=== PATIENT | male | born 1955 ===

== ENCOUNTER 2025-10-06 10:21 | Outpatient (AMB) | payer MEDICARE, SELFPAY ==
--- OUTSIDE RECORDS SUMMARY | 2025-10-05 13:30 | XMS_ITS | Encounter Summary ---
Author Organization [facility] Address [address] [place] [address] Care Team Providers Care Spinning Mule Tender Name Role Phone Curt Savage MD Primary Care Provider [phone] Reason for Visit * Reason Comments Hypertension Encounter Details Date Type Department Care Team (Late Contact Info) Description 10/05/2025 1:30 PM EST Office Visit Adult Medicine [address] [phone] Marycarmen Diaz PA [address] [place] [address] Primary hypertension (Primary Dx) Social History Tobacco Use Types Packs/Day Years Used Date Smoking Tobacco: Never Smokeless Tobacco: Never Tobacco Cessation:Counseling Given: Not Answered Alcohol Use Standard Drinks/Week Comments Yes 0 (1 standard drink = 0.6 oz pur e alcohol) Sex and Gender Information Value Date Recorded Sex Assigned at Not on file Legal Sex Male 3:21 AM EST Gender Identity Not on file Sexual Orientation Not on file documented as of this encounter Last Filed Vital Signs Vital Sign Reading Time Taken Comments Blood Pressure 134/86 10/05/2025 1:46 PM EST Pulse 76 10/05/2025 1:26 PM EST Temperature 36.3 C (97.4 F) 10/05/2025 1:26 PM EST Respiratory Rate - - Oxygen Saturation 90% 10/05/2025 1:26 PM EST Inhaled Oxygen Concentration - - Weight 80.3 kg (177 lb 1.6 oz) 10/05/2025 1:26 P M EST Height 180.3 cm (5' 10.98 ) 10/05/2025 1:[address] Body Mass Index 24.71 10/05/2025 1:26 PM EST documented in this encounter Progress Notes * CARLITA Anne - 10/05/2025 1:30 PM EST CHIEF COMPLAINT: Hypertension IDENTIFIER: Yovany Rodríguez is a 70 y.o. old male. HPI: Patient is a 70-year-old male who presents to the office today for blood pressure follow-up. He waslast seen by PCP 09/01/2025 during which blood pressure was at goal. He did report lightheadedness/dizziness which contributed to a fall. Irbesartan 75 mg was discontinued. Patient was advised to continue spironolactone 12.5 mg daily and carvedilol 25 mg twice daily. Blood pressure today is initially 134/88 with 3-minute average at 142/92 and repeat at the end of visit 134/86. The patient endorsescompliance with antihypertensives, denies adverse effects. His home blood pressure reading log ranges between 103-139/68-91. ROS: GENERAL: No malaise, significant weight loss or fever RESPIRATORY: No cough, wheezing or shortness of breath CARDIOVASCULAR: No chest pain, leg swelling or palpitations NEURO: No persistent headache, syncope, seizures, weakness or numbness PAST MEDICAL HISTORY: Patient Active Problem List Diagnosis Date Noted Nonischemic cardiomyopathy ([facility] V24, [facility] V28) 07/19/2025 PAD (peripheral artery disease) ([facility] V24) 02/22/2025 Alzheimer's disease ([facility] V24, [facility] V28) 03/25/2024 Cerebral microvascular disease 03/25/2024 Ascending aorta dilatation ([facility] V24) 10/04/2022 Ventricular tachycardia ([facility] V24, [facility] V28) 04/24/2022 Anxiety and depression 05/30/2021 Cerebellar hemorrhage ([facility] V24, [facility] V28) 03/25/2011 CKD (chronic kidney disease) stage 3, GFR 30-59 ml/min ([facility] V24, [facility] V28) 03/25/2011 Hypertension 03/25/2011 Maxillary sinus mass 03/25/2011 Surgical History[1] SOCIAL HISTORY: Social History Tobacco Use Smoking status: Never Smokeless tobacco: Never Substance Use Topics Alcohol use: Yes FAMILY HISTORY: Family History[2] Family Status Relation Name Status Mother Alive Sciatica, DJD of hip Father Alive CKD, HTN, Bladder CA Brother Alive Testicular CA No partnership data on file MEDICATIONS DISCONTINUED/REORDERED: There are no discontinued medications. ACTIVE MEDICATIONS: Medications Taking[3] ALLERGIES: Allergies[4] PHYSICAL EXAM: Visit Vitals BP 134/86 Pulse 76 Temp 36.3 ??C (97.4 ??F) (Temporal) Ht 1.803 m (70.98 ) Wt 80.3 kg (177 lb 1.6 oz) SpO2 90% BMI 24.71 kg/m?? Smoking Status Never BSA 2 m?? APPEARANCE: Alert and in no acute distress HEART: RRR with normal S1 and S2, no murmurs, no gallops LUNG: clear to auscultation, no wheezing, rales, or rhonchi. Able to talk in full complete sentences NEURO: Awake, alert and oriented x 3. LABS: Lab Results Component Value Date GLUCOSE 87 09/01/2025 CALCIUM 8.6 09/01/2025 NA 139 09/01/2025 K 5.0 09/01/2025 CO2 26 09/01/2025 CL 108 09/01/2025 BUN 30 (H) 09/01/2025 CREATININE 1.61 (H) 09/01/2025 IMPRESSION: 1. Primary hypertension PLAN: Blood pressure today is stable. At this time will continue current regimen of spironolactone 12.5 mg daily and carvedilol 25 mg BID. Patient to contact office for persistently elevated readings greater than 140/90. Follow up in 5 months for routine care. All questions and concerns were addressed. Yovany Rodríguez verbalizes understanding and agrees with thistreatment plan. Patient was reminded to call or return to the office if any new or existing problems arise. No orders of the defined types were placed in this encounter. None CARLITA Anne on 10/05/2025 at 3:53 PM EST Today's documentation was made using voice recognition software.This note may contain grammatical errors secondary to this software. [1] Past Surgical History: Procedure Laterality Date ABLATION Done on 03/21/2022 at [facility] indications:Ventricular Tachycardia and Ventricular Fibrillation CARDIAC CATHETERIZATION DONE ON 03/18/2022 AT [facility] INDICATIONS:Ventricular tachycardia OTHER SURGICAL HISTORY PROCEDURE: ---- OTHER ----; COMMENT: skin CA removed from neck [2] No family history on file. [3] Outpatient Medications Marked as Taking for the 10/05/25 encounter (Office Visit) with CARLITA Anne Medication Sig Dispense Refill aspirin 81 mg EC tablet Take 1 tablet (81 mg total) by mouth 1 (one) time each day. carvediloL (COREG) 25 mg tablet Take 1 tablet (25 mg total) by mouth 2 (two) times a day with meals. 180 each 3 FLUoxetine (PROzac) 20 mg capsule Take 1 capsule (20 mg total) by mouth 1 (one) time each day in the morning. fluticasone propionate (FLONASE) 50 mcg/actuation nasal spray Administer 2 sprays into each nostril1 (one) time each day. Shake gently. Before first use, prime pump. After use, clean tip and replacecap. 16 g 0 folic acid (FOLVITE) 1 mg tablet TAKE 1 TABLET BY MOUTH 1 TIME EACH DAY. 90 tablet 1 memantine (NAMENDA) 10 mg tablet Take 1 tablet (10 mg total) by mouth 2 (two) times a day. for 90 days pyridoxine (B-6) 100 mg tablet Take 1 tablet (100 mg total) by mouth 1 (one) time each day. rosuvastatin (CRESTOR) 20 mg tablet Take 0.5 tablets (10 mg total) by mouth 1 (one) time each day. 90 tablet 3 spironolactone (ALDACTONE) 25 mg tablet Take 0.5 tablets (12.5 mg total) by mouth 1 (one) time eachday. 45 tablet 3 [4] Allergies Allergen Reactions Shellfish Derived documented in this encounter Plan of Treatment Upcoming Encounters Date Type Department Care Team (Late st Contact Info) Description 12/14/2025 3:00 PM EST Office Visit Nephrology [facility] V[facility]as [address] [place] [address] [place] [phone] Don Brito MD [address] [place] [address] 03/09/2026 11:00 AM EDT Office Visit Adult Medicine [facility] [address] [place] [address] Curt Savage MD [address] [place] [address] 06/14/2026 1:30 PM EDT Ancillary Procedure [facility] [address] [facility] [address] [place] [phone] documented as of this encounter Visit Diagnoses Diagnosis Primary hypertension- Primary Unspecified essential hypertension Encounter for adjustment or management of cardiac device documented in this encounter Care Teams Spinning Mule Tender Relationship Specialty Start Date End Date Curt Savage MD [address] [place] [address] PCP - General Internal Medicine 07/19/25 documented as of this encounter
--- NOTE | 2025-10-06 10:46 | A.OFFVIS_ITS ---
Intake Visit Reasons: 6m dementia HPI Comments Details: 70 years old man (with no or children ) with history of brain bleed around 2010, cardiac ICD placement, hypertension, tension type headaches (taking care of his mother) and multifactorial dementia. He is presenting with headaches, impaired memory, and medication review. He has been experiencing daily headaches for some time now, which he correlates to stress, especially in conjunction with a lump felt in the occipital region. Despite the continuous headaches, no specific medication has been started apart from a daily baby aspirin. Notably, the patient reports ongoing short-term memory impairment without a clear onset date, impacting his daily activities. He describes frequent nocturia disrupting his sleep, likely connected to underlying benign prostatic hyperplasia. Adjustments in antihypertensive therapy were made previously due to hypotension, with recent measurements noted at a reasonable level. Anxiety management with Fluoxetine was initiated by the primary care provider, but financial constraints limit additional pharmacological interventions. The patient shares concerns surrounding stress, initially dia due to delayed benefits but resolving, now heightened by approaching holidays. While these concerns contribute to his memory and headache issues, he has not addressed this medically other than existing anxiety medication. Review of Systems Narrative - Neurological: Reports impaired short-term memory, daily headaches, and a lump in the occipital region. - Genitourinary: Reports nocturia affecting sleep. - Psychological: Reports experiencing stress and anxiety. - Sleep: Reports disrupted sleep patterns. Physical Exam Neuro Other: Mental Status: Alert and oriented to person, place, and time. Normal attention. Normal spontaneous speech, fluency, and comprehension. Cranial Nerves: CN II: Visual calderon full to confrontation, visual acuity intact. CN III, IV, : Pupils equal, round, reactive to light and accommodation. Extraocular movements are normal. CN V: Facial sensation is normal. CN VII: Facial movements symmetrical. CN VIII: Hearing intact to bedside conversation is normal. CN IX, X: Palate elevates symmetrically. CN XI: Shoulder shrug and head turn symmetrical. CN XII: Tongue midline without atrophy or fasciculations. Extrapyramidal: Full facial expressions and blinking. No rigidity. Movements are appropriate with no tremor or abnormality. Speech: Normal; no dysarthria or tremor. Assessment & Plan Assessment & Plan (1) Multifactorial dementia: Comment: CT brain WO at [facility] in March 2025: Mod cerebellar atrophy, mild MVD CT brain WO at [place] in Jun 2023: atrophy and MVD (reported) MRI brain WO at [place] in 2010: Extensive WM disease (reported) Code(s): F03.90 - Unspecified dementia, unspecified severity, without behavioral disturbance, psychotic disturbance, mood disturbance, and anxiety Category: Medical (2) Vascular dementia: Code(s): F01.50 - Vascular dementia, unspecified severity, without behavioral disturbance, psychotic disturbance, mood disturbance, and anxiety Category: Medical Qualifiers: Dementia severity: mild Dementia behavioral or psychological symptom: with mood disturbance Qualified Code(s): F01.A3 - Vascular dementia, mild, with mood disturbance (3) Alzheimer disease: Code(s): G30.9 - Alzheimer's disease, unspecified; F02.80 - Dementia in other diseases classified elsewhere, unspecified severity, without behavioral disturbance, psychotic disturbance, mood disturbance, and anxiety Category: Medical (4) Tension type headache: Code(s): G44.209 - Tension-type headache, unspecified, not intractable Category: Medical Qualifiers: Headache chronicity pattern: episodic headache Intractability: not intractable Qualified Code(s): G44.219 - Episodic tension-type headache, not intractable Plan Impression: a: Multifactorial mild to mod dementia b: Tension type headaches Rec: a: Memantine 10mg bid b: Donepezil 10mg daily c: Fluoxetine 20mg daily Medications: New memantine 10 mg PO BID 180 tabs 1RF donepezil 10 mg PO BEDTIME 90 tabs 1RF Coding Level of Care Code Est Pt Level 3 (80366) Global (30736) Diagnoses Multifactorial dementia F03.90 Mild vascular dementia with mood disturbance F01.A3 Dementia severity: mild Dementia behavioral or psychological symptom: with mood disturbance Alzheimer disease G30.9; F02.80 Episodic tension-type headache, not intractable G44.219 Headache chronicity pattern: episodic headache Intractability: not intractable
--- OUTSIDE RECORDS SUMMARY | 2025-10-06 12:37 | XMS_ITS | Encounter Summary ---
Author Organization [facility], Address [address] [place] [address] Phone Care Team Providers Care Vehicle Safety Inspector Name Role Phone Margarita Burns MD Primary Care Provider [phone] Reason for Visit * Reason Comments Med Refill Encounter Details Date Type Department Care Team (Late st Contact Info) Description 03/08/2020 Refill [facility] [address] [place] [address] Hugo Phipps MD [address] [place] [address] Social History Tobacco Use Types Packs/Day Years Used Date Smoking Tobacco: Never Alcohol Use Standard Drinks/Week Comments Yes 0 (1 standard drink = 0.6 oz pure alcohol) Alcoholic Drinks/day: Occasional social drink Sex and Gender Information Value Date Recorded Sex Assigned at Not on file Legal Sex Male 4:30 PM EST Gender Identity Not on file Sexual Orientation Not on file documented as of this encounter Plan of Treatment Not on file documented as of this encounter Visit Diagnoses Not on filedocumented in this encounter Care Teams Vehicle Safety Inspector Relationship Specialty Start Date End Date Margarita Burns MD [address] [facility] [address] [place], [place] PCP - General 09/28/19 documented as of this encounter
--- OUTSIDE RECORDS SUMMARY | 2025-10-06 12:37 | XMS_ITS | Encounter Summary ---
Author Organization [facility] Address [address] [place] [address] Care Team Providers Care Stationary Engineer Apprentice Name Role Phone Curt Savage MD Primary Care Provider [phone] Encounter Details Date Type Department Care Team (Late Contact Info) Description 09/13/2025 Results Follow-Up Adult Medicine [address] [phone] Curt Savage MD [address] [place] [address] Social History Tobacco Use Types Packs/Day Years Used Date Smoking Tobacco: Never Smokeless Tobacco: Never Alcohol Use Standard Drinks/Week Comments Yes 0 (1 standard drink = 0.6 oz pur e alcohol) Sex and Gender Information Value Date Recorded Sex Assigned at Not on file Legal Sex Male 3:21 AM EST Gender Identity Not on file Sexual Orientation Not on file documented as of this encounter Plan of Treatment Upcoming Encounters Date Type Department Care Team (Late Contact Info) Description 12/14/2025 3:00 PM EST Office Visit Nephrology [address] [phone] Don Brito MD [address] [facility] [address] [place] [address] 03/09/2026 11:00 AM EDT Office Visit Adult Medicine [address] [phone] Curt Savage MD [address] [place] [address] 06/14/2026 1:30 PM EDT Ancillary Procedure [facility] [address] [facility] [address] [place] [address] documented as of this encounter Visit Diagnoses Not on filedocumented in this encounter Care Teams Stationary Engineer Apprentice Relationship Specialty Start Date End Date Curt Savage MD [address] [place] [address] PCP - General Internal Medicine 07/19/25 documented as of this encounter
--- OUTSIDE RECORDS SUMMARY | 2025-10-06 12:37 | XMS_ITS | Clinical Summary ---
Author Organization [place] [address] [address] Formerly [facility] Building Address [address] [place] [address] Phone Care Team Providers Care Personal Financial Counselor Name Role Phone Curt Savage MD Primary Care Provider [phone] Allergies Active Allergy Reactions Criticality Noted Date Comments Shellfish Derived 04/26/2022 Medications aspirin 81 mg EC tablet Take 1 tablet (81 mg total) by mouth 1 (one) time each day. 3 Active FLUoxetine (PROzac) 20 mg capsule Take 1 capsule (20 mg total) by mouth 1 (one) time each day in the morning. 4 Active omeprazole (PriLOSEC) [address] capsule TAKE 1 CAPSULE BY MOUTH EVERY DAY 90 capsule 1 5 Active Additional Information Patient not taking.Reason: Other (dc'd), Reported on 09/01/2025 pyridoxine (B-6) 100 mg tablet Take 1 tablet (100 mg total) by mouth 1 (one) time each day. Active memantine (NAMENDA) 10 mg tablet Take 1 tablet (10 mg total) by mouth 2 (two) times a day. for 90 days 5 Active fluticasone propionate (FLONASE) 50 mcg/actuation nasal spray Administer 2 sprays into each nostril 1 (one) time each day. Shake gently. Before first use, prime pump. After use, clean tip and replace cap. 16 g 5 04/07/20 26 Active rosuvastatin (CRESTOR) 20 mg tablet Take 0.5 tablets (10 mg total) by mouth 1 (one) time each day. 90 tablet 3 5 Active carvediloL (COREG) 25 mg tablet Take 1 tablet (25 mg total) by mouth 2 (two) times a day with meals. 180 each 3 5 Active spironolactone (ALDACTONE) 25 mg tablet Take 0.5 tablets (12.5 mg total) by mouth 1 (one) time each day. 45 tablet 3 5 Active folic acid (FOLVITE) 1 mg tablet TAKE 1 TABLET BY MOUTH 1 TIME EACH DAY. 90 tablet 1 5 Active Active Problems Problem Noted Date Diagnosed Date Nonischemic cardiomyopathy ([facility] V24, [facility] V28) 07/19/2025 Overview (07/19/2025): Nonischemic cardiomyopathy. Kardia catheterization showed diffuse noncritical disease with left circumflex with 35% mid RCA at 50%. LVEF 41% by MRI. No clear infiltrative disease and echocardiogram showed normalization of LV function and with medications. He is on lipid-lowering therapy with an outstanding LDL and I will have him cut the Crestor in half given his weak legs and muscle aches. His blood pressure is running on the low side he often gets systolics around 90 so we will have him stop Avapro but continue spironolactone and carvedilol. Assessment & Plan (07/19/2025 11:12 AM EDT): Stop Avapro due to hypotension. Continue carvedilol and spironolactone. Monitor weight. Continue healthy lifestyle. PAD (peripheral artery disease) ([facility] V24) Alzheimer's disease ([facility] V24, [facility] V28) 0 03/25/2024 Overview (09/02/2024): Jaden Cerebral microvascular disease 03/25/2024 Overview (09/02/2024): Jaden Ascending aorta dilatation ([facility] V24) 022 Overview (09/02/2024): Seen on CT chest 10/04/22, Stable dilatation of the aortic root measuring 4.4 cm. Stable dilatation of the ascending thoracic aorta measuring 3.9 cm. Other aortic measurements are stable and include proximal arch 3.4 cm, distal arch 3.1 cm, and mid descending 2.7 cm. Assessment & Plan (07/19/2025 11:10 AM EDT): Dilated aorta. Continue to follow with annual echocardiograms. I will wait until his next 6-month visit and we will recheck at that time. Ventricular tachycardia ([facility] V24, [facility] V2 8) 04/24/2022 Assessment & Plan (07/19/2025 11:11 AM EDT): No ventricular tachycardia on ICD. Normally functioning ICD. Continue remote monitoring. Continue beta-arcelia. Anxiety and depression 05/30/2021 Cerebellar hemorrhage ([facility] V24, [facility] V28) 03/25/2011 CKD (chronic kidney disease) stage 3, GFR 30-59 ml/min ([facility] V24, [facility] V28) 03/25/2011 Hypertension 03/25/2011 Maxillary sinus mass 03/25/2011 Encounters Date Type Department Care Team Description 10/05/2025 1:30 PM EST Office Visit Adult [address] [phone] Marycarmen Diaz PA Primary hypertension (Primary Dx) 09/13/2025 Results Follow-Up [facility] [address] [phone] Curt Savage MD 09/01/2025 11:30 AM EDT Office Visit Adult [address] [phone] Curt Savage MD Primary hypertension (Primary Dx); Stage 3a chronic kidney disease ([facility] V24, [facility] V28); Encounter for long-term (current) use of medications; Hypercholesterolemia; Alzheimer's disease ([facility] V24, CMS/HCC V28) 08/18/2025 10:50 AM EDT Ancillary Procedure [facility] Cardiology [facility] [address] [place] [address] 08/18/2025 Telephone [facility] [address] [place] [address] Yolande Harmon NP 07/22/2025 Telephone [facility] [address] [place] [address] Kiel Tom MD 07/19/2025 11:50 AM EDT Ancillary Procedure [facility] [address] [place] [address] 07/19/2025 11:00 AM EDT Office Visit [facility] [address] [place] [address] Kiel Tom MD Ventricular tachycardia (CMS/HCC V24, CMS/HCC V28) (Primary Dx); HFrEF (heart failure with reduced ejection fraction) (CMS/HCC V24, CMS/HCC V28); Ascending aorta dilatation (CMS/HCC V24); Nonischemic cardiomyopathy (CMS/HCC V24, CMS/HCC V28) 07/19/2025 Telephone [facility] [address] [place] [address] Consuelo Brand PA from Last 3 Months Immunizations Immunization Administration Dates Next Due Influenza trivalent, 0.5mL ( Fluzone High-dose) 65yo and older 08/23/2025,07/15/2024,08/09/2023,07/28,07/23/2021 Influenza trivalent, with pr eservative (Fluzone; Afluria) 6mo and older 08/30/2013 Moderna (age 6mo-5yr) Bivale nt Additional Dose, COVID-19 07/28/2022 Pneumococcal conjugate 13 va lent (Prevnar 13, PCV13) 2mo and older 03/06/2021 Pneumococcal polysaccharide 23 valent (Pneumovax 23) 2yo and older 05/07/2022 RSV, bivalent, protein subun it RSVpreF, 0.5mL, Preservative Free (Arexvy) 50yo and older 10/09/2023 Tdap Tetanus diptheria acell ular pertussis (Boostrix; Adacel) 7yo and older 03/06/2021,08/19/2011 Zoster recombinant (Shingrix ) 19yo and older 09/27/2021,07/23/2021 Surgical History Surgery Date Site/Laterality Comments OTHER SURGICAL HISTORY PROCEDURE: ---- OTHER ----; COMMENT: skin CA removed from neck CARDIAC CATHETERIZATION DONE ON 03/18/2022 AT [facility] INDICATIONS:Ventricular tachycardia ABLATION Done on 03/21/2022 at [facility] JPM indications:Ventricular Tachycardia and Ventricular Fibrillation Medical History Medical History Date Comments Hypertension goal BP (blood pressure) < 130/80 DX:Hypertension goal BP (blo od pressure) < 130/80 Family History Relation Name Status Comments Brother Alive Testicular CA Father Alive CKD, HTN, Bladd er CA Mother Alive Sciatica, DJD o f hip Social History Tobacco Use Types Packs/Day Years [...] on file Sexual Orientation Not on file Obstetrics History Last Filed Vital Signs Vital Sign Reading Time Taken Comments Blood Pressure 134/86 10/05/2025 1:46 PM EST Pulse 76 10/05/2025 1:26 PM EST Temperature 36.3 C (97.4 F) 10/05/2025 1:26 PM EST Respiratory Rate 14 09/01/2025 11:20 AM EDT Oxygen Saturation 90% 10/05/2025 1:26 PM EST Inhaled Oxygen Concentration - - Weight 80.3 kg (177 lb 1.6 oz) 10/05/2025 1:26 P M EST Height 180.3 cm (5' 10.98 ) 10/05/2025 1:[address] Body Mass Index 24.71 10/05/2025 1:26 PM EST Plan of Treatment Upcoming Encounters Date Type Department Care Team (Late st Contact Info) Description 12/14/2025 3:00 PM EST Office Visit Nephrology - [address] [phone] Don Brito MD [address] [place] [address] 03/09/2026 11:00 AM EDT Office Visit Adult [facility] - [address] [phone] Curt Savage MD [address] [place] [address] 06/14/2026 1:30 PM EDT Ancillary Procedure [facility] [address] [facility] [address] [place] [address] Health Maintenance Due Date Last Done Comments Colorectal Cancer Screening: Colonoscopy 1955 [place] Risk Assessment 11/02/2022 Medicare Annual Wellness Visit 11/02/2022 Social Influencers of Health Screening 11/02/2022 Depression Screening 11/24/2024 COVID-19 Vaccine (8 - Mixed Product risk season) 2026 08/23/2025, 05/13/2025, 07/20/2024, Additional history exists Hypertension/CHF/CAD Annual BMP Blood Test 09/01/2026 09/01/2025, 03/24/2025, 02/22/2025, Additional history exists Cholesterol Screening (Lipid Panel) 09/01/2030 09/01/2025, 02/22/2025, 02/02/2024 DTaP,Tdap,and Td Vaccines (3 - Td or Tdap) 03/06/2031 03/06/2021, 08/19/2011 Hepatitis C Screening Completed 03/06/2021 Zoster Vaccines Completed 09/27/2021, 07/23/2021 Pneumococcal Vaccine: 50+ Years Completed 05/07/2022, 03/06/2021 RSV Immunization Adult Patients Completed 10/09/2023 Influenza Vaccine Completed 08/23/2025, , 08/09/2023, Additional history exists HIB Vaccines Aged Out No longer eligi ble based on patient's age to complete this topic HPV Vaccines Aged Out No longer eligi ble based on patient's age to complete this topic Hepatitis A Vaccines Aged Out No long er eligible based on patient's age to complete this topic Hepatitis B Vaccines Aged Out No long er eligible based on patient's age to complete this topic IPV Vaccines Aged Out No longer eligi ble based on patient's age to complete this topic MMR Vaccines Aged Out No longer eligi ble based on patient's age to complete this topic Meningococcal ACWY Vaccine Aged Out N o longer eligible based on patient's age to complete this topic Meningococcal B Vaccine Aged Out No l onger eligible based on patient's age to complete this topic RSV Immunization Patients Under 20 months Aged Out No longer eligible based on patient's age to complete this topic Varicella Vaccines Aged Out No longer eligible based on patient's age to complete this topic Medical Devices Implanted Type Area Photoengraving Helper Device Identifier Shelf Expiration Date Model / Serial / Lot Biot-Manu Acticor 7 Vr-T Dx [id number] Implanted:02/23 (Quantity not on file) Cardiac ICD [employer] ACTICOR 7 VR-T DX / [id number] / Procedures Procedure Name Priority Date/Time Associated Diagnosis Comments LIPID PANEL WITH REFLEX TO DIRECT LDL Routine 09/01/2025 12:17 PM EDT Hypercholesterolem ia COMPREHENSIVE METABOLIC PANEL Routine 09/01/2025 12:17 PM EDT Stage 3a chronic kidney disease (CMS/HCC V24, CMS/HCC V28) Encounter for long-term (current) use of medications CARDIAC DEVICE CHECK- REMOTE- MURJ Routine 08/18/2025 10:45 AM EDT CARDIAC DEVICE CHECK- REMOTE- MURJ Routine 07/19/2025 11:48 AM EDT TRIIODOTHYRONINE FREE Routine 07/19/2025 11:45 AM EDT Ventricular tachycardia (CMS/HCC V24, CMS/HCC V28) HFrEF (heart failure with reduced ejection fraction) (CMS/HCC V24, CMS/HCC V28) FREE THYROXINE WITH REFLEX TO FREE TRIIODOTHYRONINE Routine 07/19/2025 11:45 AM EDT Ventricular tachycardia (CMS/HCC V24, CMS/HCC V28) HFrEF (heart failure with reduced ejection fraction) (CMS/HCC V24, CMS/HCC V28) THYROID STIMULATING HORMONE WITH REFLEX TO FREE T4 AND FREE T3 Routine 07/19/2025 11:45 AM EDT Ventricular tachycardia (CMS/HCC V24, CMS/HCC V28) HFrEF (heart failure with reduced ejection fraction) (CMS/HCC V24, CMS/HCC V28) BORRELIA BURGDORFERI ANTIBODY Routine 07/19/2025 11:45 AM EDT Ventricular tachycardia (CMS/HCC V24, CMS/HCC V28) HFrEF (heart failure with reduced ejection fraction) (CMS/HCC V24, CMS/HCC V28) THYROID STIMULATING HORMONE Routine 07/19/2025 11:45 AM EDT Ventricular tachycardia (CMS/HCC V24, CMS/HCC V28) HFrEF (heart failure with reduced ejection fraction) (CMS/HCC V24, CMS/HCC V28) ECG 12-LEAD Routine 07/19/2025 11:13 AM EDT Ventricular tachycardia (CMS/HCC V24, CMS/HCC V28) HEPATITIS C SCREENING Routine 03/06/2021 from Last 3 Months or Most Recently Relevant to Health Maintenance Results * Lipid panel with reflex to direct LDL (09/01/2025 12:17 PM EDT) [facility] Cholesterol 93 0 - 200 mg/dL LAB CHEMISTRY METHOD 09/01/2025 3:01 PM EDT [facility] Triglycerides 81 0 - 150 mg/dL LAB CHEMISTRY METHOD 09/01/2025 3:01 PM EDT [facility] HDL 58 >=40 mg/dL LAB CHEMISTRY METHOD 09/01/2025 3:01 PM EDT [facility] LDL Calculated 19 0 - 100 mg/dL LAB CHEMISTRY METHOD 09/01/2025 3:01 PM EDT [facility] Comment:Estimated LDL Calcul ated using equation: Total cholesterol - HDL cholesterol - (Triglycerides/5) VLDL Cholesterol J[place] 16.2 mg/dL LAB CHEMISTRY METHOD 09/01/2025 3:01 PM T [facility] Non HDL Chol. (LDL+VLDL) 35 <145 mg/dL LAB CHEMISTRY METHOD 09/01/2025 3:01 PM [facility] Chol/HDL Ratio 1.6 0.0 - 4.4 LAB CHEMISTRY METHOD 09/01/2025 3:01 PM [facility] Blood Venous blood specimen / Unknown Venipuncture / Unknown 09/01/2025 12:17 PM EDT 09/01/2025 12:17 PM EDT us Curt Savage MD LAB BLOOD ORDERABLES Final Resu lt [facility] [address] [place] [address], [place] [phone] * (ABNORMAL) Comprehensive metabolic panel (09/01/2025 12:17 PM EDT) Sodium 139 133 - 145 mmol/L LAB CHEMISTRY METHOD 09/01/2025 3:06 PM T [facility] Potassium 5.0 3.5 - 5.5 mmol/L LAB CHEMISTRY METHOD 09/01/2025 3:06 PM [facility] Chloride 108 96 - 110 mmol/L LAB CHEMISTRY METHOD 09/01/2025 3:06 PM [facility] CO2 26 21 - 32 mmol/L LAB CHEMISTRY METHOD 09/01/2025 3:06 PM [facility] Anion Gap 5 3 - 11 LAB CHEMISTRY METHOD 09/01/2025 3:06 PM [facility] Glucose 87 70 - 100 mg/dL LAB CHEMISTRY METHOD 09/01/2025 3:06 PM [facility] BUN 30(H) 5 - 25 mg/dL LAB CHEMISTRY METHOD 09/01/2025 3:06 PM [facility] Creatinine 1.61(H) 0.70 - 1.30 mg/dL LAB CHEMISTRY METHOD 09/01/2025 3:06 PM [facility] eGFR 46(L) >=60 mL/min/1. 73m2 LAB CHEMISTRY METHOD 09/01/2025 3:06 PM [facility] Comment:Calculation based on the Chronic Kidney Disease Epidemiology Collaboration (CKD-EPI) equation refit without adjustment for race. BUN/Creatinine Ratio 18.6 LAB CHEMISTRY METHOD 09/01/2025 3:06 PM [facility] Calcium 8.6 8.5 - 10.5 mg/dL LAB CHEMISTRY METHOD 09/01/2025 3:06 PM [facility] Comment:Results verified by repeat testing AST (SGOT) 18 10 - 42 unit/L LAB CHEMISTRY METHOD 09/01/2025 3:06 PM [facility] ALT (SGPT) 25 10 - 60 unit/L LAB CHEMISTRY METHOD 09/01/2025 3:06 PM [facility] Alkaline Phosphatase 90 42 - 121 unit/L LAB CHEMISTRY METHOD 09/01/2025 3:06 PM [facility] Total Protein 7.2 6.0 - 8.0 g/dL LAB CHEMISTRY METHOD 09/01/2025 3:06 PM [facility] Albumin 4.1 3.2 - 5.0 g/dL LAB CHEMISTRY METHOD 09/01/2025 3:06 PM [facility] Total Bilirubin 1.4 0.0 - 1.4 mg/dL LAB CHEMISTRY METHOD 09/01/2025 3:06 PM EDT [facility] Blood Venous blood specimen / Unknown Venipuncture / Unknown 09/01/2025 12:17 PM EDT 09/01/2025 12:17 PM EDT us Curt Savage MD LAB BLOOD ORDERABLES Final Resu lt [facility] [address] [place] [address], * Cardiac device check - Remote- MURJ (08/18/2025 10:45 AM EDT) Only the most recent of2 resultswithin the time period is included. Date Time Interrogation Session [id number] CV DEVICE CHECK Type Interrogation Session Remote CV DEVICE CHECK Implantable Pulse Generator Photoengraving Helper BIO CV DEVICE CHECK Implantable Pulse Generator Type ICD CV DEVICE CHECK Implantable Pulse Generator Model Acticor 7 VR-T DX CV DEVICE CHECK Implantable Pulse Generator Serial Number [id number] CV DEVICE CHECK Implantable Pulse Generator Implant Date 20220321 CV DEVICE CHECK Battery Remaining Percentage 100.00 CV DEVICE CHECK Battery Voltage 3.090 CV D EVICE CHECK Battery HEALTHCARE PROJECT MANAGER Trigger 2.850 CV DEVICE CHECK Battery Status Beginning of Service CV DEVICE CHECK Capacitor Charge Time 9.000 CV DEVICE CHECK Bryan Statistic RV Percent Paced 0.00 CV DEVICE CHECK Atrial Tachy Statistic AT/AF [place] Percent 0.00 CV DEVICE CHECK Lead Channel Sensing Intrinsic Amplitude 9.600 CV DEVICE CHECK Lead Channel Setting Sensing Sensitivity 1.00 CV DEVICE CHECK Lead Channel RA Pacing Threshold Date 2025-08-13 CV DEVICE CHECK Lead Channel Sensing Intrinsic Amplitude 13.300 CV DEVICE CHECK Lead Channel Setting Sensing Sensitivity 0.60 CV DEVICE CHECK Lead Channel Impedance Value 443 CV DEVICE CHECK Lead Channel Pacing Threshold Amplitude 1.300 CV DEVICE CHECK Lead Channel Pacing Threshold Pulse Width 0.4 CV DEVICE CHECK Lead Channel RV Pacing Threshold Date 2025-08-13 CV DEVICE CHECK Lead Channel Setting Pacing Amplitude 2.300 CV DEVICE CHECK Lead Channel Setting Pacing Pulse Width 0.4 CV DEVICE CHECK Bryan Setting Mode (NBG Code) VVI CV DEVICE CHECK Bryan Setting Lower Rate Limit 40 CV DEVICE CHECK Therapy Statistic Recent Shocks Delivered 0 CV DEVICE CHECK Therapy Statistic Recent Shocks Aborted 0 CV DEVICE CHECK Therapy Statistic Recent ATP Delivered 0 CV DEVICE CHECK Shock Measured Impedance 68 CV DEVICE CHECK Zone Setting Type Category Zone_ATAF CV DEVICE CHECK Rate 200 CV DEVICE CHECK Zone Setting Status Monitor CV DEVICE CHECK Zone ID 7 CV DEVICE CHECK Zone Setting Type Category VF CV DEVICE CHECK Rate 200 CV DEVICE CHECK Therapies Burst,30.0J,40.0J, 40.0J x 6 CV DEVICE CHECK Zone Setting Status On CV DEVICE CHECK Zone ID 8 CV DEVICE CHECK Zone Setting Type Category VT CV DEVICE CHECK Rate 150 CV DEVICE CHECK Therapies 3 x Burst,3 x Ramp,30.0J,40.0J,4 0.0J x 6 CV DEVICE CHECK Zone Setting Status On CV DEVICE CHECK Zone ID 9 CV DEVICE CHECK Zone Setting Type Category VT CV DEVICE CHECK Zone Setting Status Inactive CV DEVICE CHECK Zone ID 10 CV DEVICE CHECK Date of Service 2025-11-01 CV DEVICE CHECK Anatomical Region Laterality Modality Device Interroga tion 08/13/2025 1:51 AM EDT Impressions 08/18/2025 10:43 AM EDT Tachycardia: VT Detected in Monitor Zone * Non Sustained tachycardia event detected within programmed monitor zone * Total episodes: 1 * EGM suggestive of 7-beats NSVT Tachycardia: VT * Stored EGMs are consistent with or suggestive of Ventricular Tachycardia * Total episodes: 1 * 23 beat no onset recorded Additional Notes: * Not monitoring for HF, do you wish to monitor? Narrative Procedure Note Yolande Harmon NP - 08/18/2025 IMPRESSION: Tachycardia: VT Detected in Monitor Zone * Non Sustained tachycardia event detected within programmed monitorzone * Total episodes: 1 * EGM suggestive of 7-beats NSVT Tachycardia: VT * Stored EGMs are consistent with or suggestive of VentricularTachycardia * Total episodes: 1 * 23 beat no onset recorded Additional Notes: * Not monitoring for HF, do you wish to monitor? Yolande Harmon NP CV IMPLANTABLE CARDIAC DEVIC E PROCEDURES Final Result * Thyroid stimulating hormone with reflex to free t4 and free t3 (07/19/2025 11:45 AM EDT) TSH 0.40 0.40 - 4.00 mcIU/mL LAB CHEMISTRY METHOD 07/22/2025 8:23 PM EDT [facility] Blood Venous blood specimen / Unknown Venipuncture / Unknown 07/19/2025 11:45 AM EDT 07/19/2025 11:45 AM EDT us Kiel Tom MD LAB BLOOD ORDERABLES Final Res ult Performing Organization Address [facility] Co de Phone Number [facility] [address] [place] [address], [place] [phone] * Free thyroxine with reflex to free triiodothyronine (07/19/2025 11:45 AM EDT) [facility] Free T4 1.38 0.70 - 1.80 ng/dL LAB CHEMISTRY METHOD 07/22/2025 8:50 PM EDT [facility] Blood Venous blood specimen / Unknown Venipuncture / Unknown 07/19/2025 11:45 AM EDT 07/19/2025 11:45 AM EDT us Kiel Tom MD LAB BLOOD ORDERABLES Final Res ult Performing Organization Address [facility] de Phone Number [facility] [address] [place] [address], [place] [phone] * Borrelia burgdorferi antibody (07/19/2025 11:45 AM EDT) [facility] Lyme Ab Negative Negative LAB CHEMISTRY METHOD 07/20/2025 12:02 PM EDT [facility] Comment: No laboratory evidence of infection with B. burgdorferi (Lyme disease). Negative results may occur in patients recently infected (<=14 days) with B. burgdorferi. If recent infection is suspected, repeat testing on a new sample collected in 7- 14 days is recommended. Blood Venous blood specimen / Unknown Venipuncture / Unknown 07/19/2025 11:45 AM EDT 07/19/2025 11:45 AM EDT Kiel Tom MD LAB BLOOD ORDERABLES Final Res ult Performing Organization Address [facility]/ZIP Co de Phone Number [facility] [address] [place] [address], [place] [phone] * Triiodothyronine free (07/19/2025 11:45 AM EDT) T3, Free 322 230 - 420 pcg/dL LAB CHEMISTRY METHOD 07/22/2025 9:15 PM EDT [facility] Blood Venous blood specimen / Unknown Venipuncture / Unknown 07/19/2025 11:45 AM EDT 07/19/2025 11:45 AM EDT Kiel Tom MD LAB BLOOD ORDERABLES Final Res ult Performing Organization Address [facility] Co de Phone Number [facility] [address] [place] [address], [place] [phone] * (ABNORMAL) TSH (07/19/2025 11:45 AM EDT) TSH 0.39(L) 0.40 - 4.00 mcIU/mL LAB CHEMISTRY METHOD 07/19/2025 3:38 PM EDT [facility] Blood Venous blood specimen / Unknown Venipuncture / Unknown 07/19/2025 11:45 AM EDT 07/19/2025 11:45 AM EDT Kiel Tom MD LAB BLOOD ORDERABLES Final Res ult Performing Organization Address City/[facility]/ZIP Co de Phone Number [facility] [address] [place] [address], [place] [phone] * ECG 12 lead (07/19/2025 11:13 AM EDT) Ventricular Rate ECG 61 BPM GEMUSE Atrial Rate 61 BPM GEMUSE P-R Interval 164 ms GEMUSE QRS Duration 114 ms GEMUSE Q-T Interval 430 ms GEMUSE QTc 432 ms GEMUSE P Wave [place] 58 degrees GEMUSE R [place] -25 degrees GEMUSE T [place] 25 degrees GEMUSE ECG Interpretation Normal sinus rhythm Non-specific intra-ventricu lar conduction delay Low voltage QRS Borderline ECG When compared with ECG of 24-MAR-2025 11:57, No significant change was found Confirmed by Chrissy TOM JOHN ([id number]) on 07/24/2025 5:01:51 PM GEMUSE 07/19/2025 10:4 8 AM EDT 07/24/2025 5:01 PM EDT us Kiel Tom MD ECG ORDERABLES Edited Result - Final GEMUSE * Hepatitis C Screening (03/06/2021) Pathologist [facility] Hepatitis C Screening Abstracted us Historical Provider HEALTH MAINTENANCE Final Result from Last 3 Months or Most Recently Relevant to Health Maintenance Insurance [employer] Care Teams Personal Financial Counselor Relationship Specialty Start Date End Date Curt Savage MD [address] [place] [address] [phone] PCP - General Internal Medicine 07/19/25
--- OUTSIDE RECORDS SUMMARY | 2025-10-06 12:37 | XMS_ITS | Clinical Summary ---
Author Organization [facility] Address [address] [facility] [address] [place] [address] Phone Care Team Providers Care Pigment Weigher Name Role Phone Margarita Burns MD Primary Care Provider [phone] Medications lisinopril (PRINIVIL,ZESTRI L) 20 MG tablet Take 1/2 tablet by mouth daily 30 tablet 11 05/22/2020 Active Family History Medical History Relation Comments Cancer Father 2 Bladder Hypertension Father 2 Kidney disease Father 2 Cancer Sibling Brother- testicu lar Relation Status Comments Father 1 Alive Father 2 Mother Alive Sibling Social History Tobacco Use Types Packs/Day Years Used Date Smoking Tobacco: Never Alcohol Use Standard Drinks/Week Comments Yes 0 (1 standard drink = 0.6 oz pure alcohol) Alcoholic Drinks/day: Occasional social drink Sex and Gender Information Value Date Recorded Sex Assigned at Not on file Legal Sex Male 4:30 PM EST Gender Identity Not on file Sexual Orientation Not on file Plan of Treatment Health Maintenance Due Date Last Done Comments Colorectal Cancer Screening: Annual FOBT 2004 Colorectal Cancer Screening: Colonoscopy 2004 Colorectal Cancer Screening: Sigmoidoscopy 2004 Influenza Vaccine (#1) 2025 3, 07/28/2022, 07/23/2021 Pneumococcal Vaccine: 50+ Years Completed 05/07/2022, 03/06/2021 Pneumococcal Vaccine: Peds ( 0 to 5 Years) and At-Risk Patients (6 to 49 Years) Discontinued 05/07/2022, 03/06/2021 Hepatitis B Vaccine Aged Out No longe r eligible based on patient's age to complete this topic Insurance [facility] Care Teams Pigment Weigher Relationship Specialty Start Date End Date Margarita Burns MD [address] [place] [address] PCP - General 09/28/19
== END 2025-10-06 10:59 | disposition home or self-care (01) ==
LOC: HO.HSM 10:21
PROVIDERS: PCP Internal Medicine; Referring Provider Internal Medicine; Visit Provider Psychiatry & Neurology Neurology
DX: G30.9 Alzheimer's disease, unspecified (principal); F01.A3 Vascular dementia, mild, with mood disturbance; F02.80 Dementia in other diseases classified elsewhere, unspecified severity, without behavioral disturbance, psychotic disturbance, mood disturbance, and anxiety; G44.219 Episodic tension-type headache, not intractable
CPT/HCPCS: 99213

== ENCOUNTER → 2025-10-06 10:21 | Outpatient (BNVA) | payer MEDICARE, SELFPAY | PROVIDERS: PCP Internal Medicine; Referring Provider Internal Medicine; Visit Provider Psychiatry & Neurology Neurology | DX: G44.219 Episodic tension-type headache, not intractable (principal); G30.9 Alzheimer's disease, unspecified; F01.A3 Vascular dementia, mild, with mood disturbance; F02.83 Dementia in other diseases classified elsewhere, unspecified severity, with mood disturbance; Z86.73 Personal history of transient ischemic attack (TIA), and cerebral infarction without residual deficits; Z95.810 Presence of automatic (implantable) cardiac defibrillator | CPT/HCPCS: 99212 ==